=== PATIENT | female | born 1935 | race Caucasian/White ===

== ENCOUNTER 2019-12-17 16:34 | Emergency (ER) | payer MEDICARE, SELFPAY ==
[2019-12-17 16:36] VITALS: BP 129/80; PULSE 74; RESP 16; TEMP 36.9; O2SAT 94; BMI 42.5
[2019-12-17 16:53] VITALS: BP 129/80; PULSE 74; RESP 16; TEMP 36.9; O2SAT 94; BMI 42.5
--- NOTE | 2019-12-17 16:56 | HMH.EDUTC ---
[facility] [place] Impression: Laceration of finger of right hand Qualifiers: Encounter type: initial encounter Finger: ring finger Damage to nail status: without damage Foreign body presence: without foreign body Qualified Code(s): S61.214A - Laceration without foreign body of right ring finger without damage to nail, initial encounter Disposition: Home, Self-Care Condition on Discharge: Good Instructions: DI for Laceration Repair With Dermabond Additional Instructions: Keep clean and dry. Return to [facility] or PCP if any problems. Watch for signs of infection. Referrals: Hector Rust [Primary Care Provider] - Time of Disposition: 17:31 Medical Decision Making - Jesus Inquiry Pt receiving controlled substance: No Vital Signs: 12/17/19 16:36 12/17/19 16:53 Temperature 98.4 F 98.4 F Temperature Source Oral Oral Pulse Rate [Radial] 74 74 Respiratory Rate 16 16 Blood Pressure [Right Arm] 129/80 129/80 Blood Pressure Mean [Right Arm] 96 96 Blood Pressure Source [Right Arm] Automatic Cuff Blood Pressure Position [Right Arm] Sitting Sitting 02 Sat by Pulse Oximetry 94 L 94 L Oxygen Delivery Method Room Air Room Air [facility] [place] - General Stated complaint: AO 12/17/19 Fell,daughter stepped on r ring f Time Seen by Provider: 12/17/19 16:57 Mode of Arrival: Ambulatory Source of Information: Patient Limitations: No Limitations Description of Symptoms (Recalled from Triage Doc. by RN): TO ED PER [facility] CAR STATES BENDING OVER LOST HER BALANCE, DAUGHTER WAS TRYING TO CATCH HER STEPPED ON HER HAND, LAC TO LT RING FINGER HEENT Symptoms (Recalled from RN notes): No Resp Symptoms (Recalled from RN notes): No Skin Symptoms (Recalled from RN notes): Yes MS Symptoms (Recalled from RN notes): No Functional Status (Recalled from RN notes): wnl - History of Present Illness Provider Complaint: Patient was falling and as daughter was trying to catch her, she stepped on her left ring finger, tearing the skin. States that she fell because she missed the seat after vacuuming and getting tired. Did hit her head, but no LOC. Last tetanus shot 4 years ago, she believes. Onset (ago): hour(s) (2) Location: left, upper extremity Radiation: non-radiation Relieving factors: none Exacerbating factors: none Treatments prior to arrival: none - Related Data Allergies Allergy/AdvReac Type Severity Reaction Status Date / Time Amoxicillin Allergy Intermediate I-RASH Uncoded 02/18/17 14:56 Latex Allergy Unknown Uncoded 02/18/17 14:56 - Worker's Comp Is this a Worker's Comp case?: No H History - Hepatitis A Screen Drug use history?: No High risk sexual behaviors?: No History of sexually transmitted infection?: No Currently employed?: No Childcare worker?: No Do you have indoor plumbing?: Yes Do you have electricity?: Yes Attestation statement:: This patient has been screened for Hepatitis A risk factors. I have reviewed the patient's past medical history: Yes ROS Obtained: Yes All systems reviewed & no additional complaints - Constitutional Constitutional: Reports frequent falls - Musculoskeletal Musculoskeletal: Reports as per HPI Physical Exam - General General appearance: alert, in no apparent distress - Head Head exam: normocephalic - Eye Eye exam: Present: PERRL - Respiratory Respiratory exam: Present: normal lung sounds bilaterally - Cardiovascular Cardiovascular exam: Present: regular rate, normal rhythm - Expanded Upper Extremity Exam Left Hand exam: Present: skin avulsion (4th DIP joint, palmar surface) - Neurological Exam Neurological exam: Present: alert, oriented X3 - Psychiatric Psychiatric exam: Present: normal affect, normal mood - Skin Skin exam: Present: warm, dry, intact Procedures - Laceration Laceration 1 Site: finger Side (If applicable): right Size (cm): 1.5 Description: flap, irregular Depth: simple, single layer Pre-repair: wound explored,
[2019-12-17 17:40] VITALS: BP 129/80; PULSE 74; RESP 16; TEMP 36.9; O2SAT 94
== END 2019-12-17 17:41 | disposition home or self-care (01) ==
PROVIDERS: Emergency Provider Physician Assistant; PCP Family Medicine
DX: S61.214A Laceration without foreign body of right ring finger without damage to nail, initial encounter (principal); W50.0XXA Accidental hit or strike by another person, initial encounter; Y92.019 Unspecified place in single-family (private) house as the place of occurrence of the external cause; Z88.1 Allergy status to other antibiotic agents; Z91.040 Latex allergy status
CPT/HCPCS: 12001; G0463; 99201